=== PATIENT | female | born 1980 | race Asian ===

== ENCOUNTER 2018-02-27 01:30 | Inpatient (IN) | payer SELFPAY ==
[~2018-02-27] VITALS: Ht 168 cm; Wt 69.4 kg
[~2018-02-27 01:30] MED LIST: AMPICILLIN SODIUM 2 GM in NS 100 ML IV ONE; LR 1,000 ML IV ONE; LR 1,000 ML IV SCH; LR 500 ML IV ONE; NALBUPHINE HCL 10 MG/ML AMP IVP PRN; OXYTOCIN/0.9 % SODIUM CHLORIDE 1,000 ML IV SCH; TERBUTALINE SULFATE 1 MG/ML VIAL SUBCUT ONE
[2018-02-27 02:12] LABS: HEMATOCRIT 29.3 % (36-48); HEMOGLOBIN 10.2 g/dL (12.0-16.0); MEAN CORPUSCULAR HEMOGLOBIN 33 pg (27-31); MEAN CORPUSCULAR HGB CONC 35 % (32-36); MEAN CORPUSCULAR VOLUME 95 fL (79.0-98.0); PLATELET COUNT (AUTO) 130 K/uL (130-430); RED BLOOD CELL COUNT(AUTO) 3.09 MIL/uL (4.2-6.2); RED CELL DISTRIBUTION WIDTH 13.9 % (9.0-15.0); WHITE BLOOD COUNT (AUTO) 7.5 K/uL (4.8-10.8)
[2018-02-27 02:25] VITALS: BP_SYST 108
[2018-02-27] MEDS ORDERED: AMPICILLIN SODIUM 2 GM VIAL ONE (02:45)
[2018-02-27 03:18] LABS: BASOPHILS % (MANUAL) 0 % (0-2); EOSINOPHILS % (MANUAL) 0 % (0-7); LYMPHOCYTES % (MANUAL) 14 % (20-46); MONOCYTES % (MANUAL) 6 % (0-11)
[2018-02-27] MEDS ORDERED: fentaNYL CITRATE/PF 100 MCG/2 ML AMP ONE (04:43)
[2018-02-27] MEDS ORDERED: ROPIVACAINE 0.2% 100 ML ONE (04:43)
[2018-02-27] MEDS ORDERED: LR 500 ML IV ONE (05:26)
[2018-02-27] MEDS ORDERED: FENT2mCg/mL-ROPIVA0.2%/NS EPID 100 ML EP SCH (05:30)
[2018-02-27] MEDS ORDERED: AMPICILLIN SODIUM 1 GM VIAL ONE (06:13)
[2018-02-27] MEDS: AMPICILLIN SODIUM 1 GM in NS 50 ML IV SCH ×2 (06:24→10:13)
[2018-02-27] MEDS ORDERED: OXYTOCIN/0.9 % SODIUM CHLORIDE 1,000 ML IV ONE (12:59)
[2018-02-27] MEDS ORDERED: SENNOSIDES/DOCUSATE SODIUM 1 TAB TABLET(SENOKOT-S) PO PRN (13:00)
[2018-02-27] MEDS ORDERED: DERMOPLAST SPRAY TP PRN (13:00)
[2018-02-27] MEDS ORDERED: OXYCODONE/ACETAMINOPHEN 5-325 TABLET PO PRN ×2 (13:00)
[2018-02-27] MEDS ORDERED: DOCUSATE SODIUM 100 MG CAPSULE PO PRN (13:00)
[2018-02-27] MEDS ORDERED: ANUSOL 1 EA SUPP.RECT (PREPARATION H) RC PRN (13:00)
[2018-02-27] MEDS ORDERED: HYDROCORTISONE 0.5%, 28.35 GM TOPICAL CREAM TP PRN (13:00)
[2018-02-27] MEDS ORDERED: LANOLIN 7 GM OINT. TP PRN (13:00)
[2018-02-27] MEDS ORDERED: WITCH HAZEL LEAF 1 MED.PAD MED.PAD TP PRN (13:00)
[2018-02-27] MEDS: IBUPROFEN 600 MG TABLET PO SCH (16:35)
[2018-02-28] MEDS: IBUPROFEN 600 MG TABLET PO SCH ×4 (00:08→18:03)
[2018-02-28 07:52] LABS: BASOPHILS % (AUTO) 0.1 % (0.0-2.0); EOSINOPHILS % (AUTO) 0.5 % (0.0-4.0); HEMATOCRIT 24.8 % (36-48); HEMOGLOBIN 8.6 g/dL (12.0-16.0); LYMPHOCYTES # (AUTO) 1.5 K/uL (1.0-5.5); LYMPHOCYTES % (AUTO) 15.5 % (20.5-51.5); MEAN CORPUSCULAR HEMOGLOBIN 33 pg (27-31); MEAN CORPUSCULAR HGB CONC 35 % (32-36); MEAN CORPUSCULAR VOLUME 95 fL (79.0-98.0); MONOCYTES # (AUTO) 0.5 K/uL (0.0-1.0); MONOCYTES % (AUTO) 5.6 % (1.7-9.3); NEUTROPHILS # (AUTO) 7.5 K/uL (1.8-7.7); NEUTROPHILS % (AUTO) 78.3 % (40.0-70.0); PLATELET COUNT (AUTO) 112 K/uL (130-430); RED BLOOD CELL COUNT(AUTO) 2.63 MIL/uL (4.2-6.2); RED CELL DISTRIBUTION WIDTH 14.1 % (9.0-15.0); WHITE BLOOD COUNT (AUTO) 9.5 K/uL (4.8-10.8)
[2018-03-01] MEDS: IBUPROFEN 600 MG TABLET PO SCH ×2 (00:09→06:01)
== END 2018-03-01 13:05 | disposition home or self-care (01) | DRG 775 ==
LOC: SPU 01:30
PROVIDERS: ADMIT Obstetrics & Gynecology; ATTEND Obstetrics & Gynecology
PROC: 10E0XZZ Delivery of Products of Conception, External Approach (ICD-10-PCS; principal; 2018-02-27)
PROC: 0KQM0ZZ Repair Perineum Muscle, Open Approach (ICD-10-PCS; 2018-02-27)
PROC: 3E033VJ Introduction of Other Hormone into Peripheral Vein, Percutaneous Approach (ICD-10-PCS; 2018-02-27)
PROC: 3E0R3BZ Introduction of Anesthetic Agent into Spinal Canal, Percutaneous Approach (ICD-10-PCS; 2018-02-27)
PROC: 00HU33Z Insertion of Infusion Device into Spinal Canal, Percutaneous Approach (ICD-10-PCS; 2018-02-27)
DX: O99.824 Streptococcus B carrier state complicating childbirth (principal); O70.1 Second degree perineal laceration during delivery; Z37.0 Single live birth; Z3A.39 39 weeks gestation of pregnancy
CPT/HCPCS: 36415; 85007; 85025; 85027; 86886; 86900; 86901; J0290; J2590; J2795; J3010